=== PATIENT | female | born 1995 | race Caucasian/White ===

== ENCOUNTER 2020-06-10 20:24 | Emergency (ER) | payer BC ==
[~2020-06-10] VITALS: Ht 160 cm; Wt 59.5 kg
[2020-06-10 22:00] LABS: BASO # 0.1 (0.0-0.2); BASO % 0.8 % (0.0-2.0); EOS # 0.2 (0.0-0.7); EOS % 3.4 % (0-4.0); GRAN % 49.9 % (42.2-75.2); HEMATOCRIT 39.7 % (37.0-47.0); HEMOGLOBIN 13.4 g/dl (12.5-16.0); LYMPH # 2.2 (1.2-3.4); LYMPH % 37.7 % (20.0-51.0); MEAN CELL VOLUME 90 fl (80.0-100.0); MEAN CORPUSCULAR HEMOGLOBIN 30 pg (27.0-31.0); MEAN CORPUSCULAR HGB CONC 34 g/dl (33.0-37.0); MEAN PLATELET VOLUME 10.2 fl (7.4-10.4); MONO # 0.5 (0.1-0.6); PLATELET COUNT 268 K/mm3 (130-400); RED BLOOD COUNT 4.43 M/mm3 (4.10-5.30); REDCELL DISTRIBUTION WIDTH-CV 11.8 % (11.5-14.5)
[2020-06-10 22:11] LABS: ALBUMIN 4.5 gm/dL (3.5-5.0); BILIRUBIN,TOTAL 1.5 mg/dL (0.0-1.0); CALCIUM 9.1 mg/dL (8.4-10.2); CREATININE, serum 0.85 (0.52-1.25); POTASSIUM 3.5 mmol/L (3.4-5.0); TOTAL PROTEIN 7.3 gm/dL (6.4-8.2)
[2020-06-10 22:15] LABS: STREP SCREEN NEGATIVE
[2020-06-10 22:41] LABS: THYROID STIMULATING HORMONE 2.09 uIU/mL (0.465-4.680)
[2020-06-10] MEDS ORDERED: AMOXICILLIN 50500 MG PO (22:42)
[2020-06-10 22:55] VITALS: BP 112/71; PULSE 73; TEMP 98.2
== END 2020-06-10 23:00 | disposition home or self-care (01) ==
LOC: COL.ER 20:24
PROVIDERS: Family Medicine
DX: R59.0 Localized enlarged lymph nodes (principal); Z88.1 Allergy status to other antibiotic agents
CPT/HCPCS: J1885

== ENCOUNTER → 2020-06-12 | Outpatient (CLI) | payer BC ==
[~2020-06-12] MED LIST: AMOXICILLIN 50500 MG PO
== END ==
LOC: COL.RAD 13:05
DX: K21.9 Gastro-esophageal reflux disease without esophagitis (principal); J38.4 Edema of larynx

== ENCOUNTER → 2020-06-12 | Outpatient (CLI) | payer BC | LOC: COL.RAD 13:47 | DX: K21.9 Gastro-esophageal reflux disease without esophagitis (principal); J38.4 Edema of larynx | CPT/HCPCS: Q9967 ==